=== PATIENT | male | born 1990 | race Caucasian/White ===

== ENCOUNTER 2023-05-22 16:11 | Outpatient (REF) | payer OTHER, SELFPAY ==
[2023-05-24 07:42] LABS: Syphilis Screen Nonreactive (Nonreactive)
[2023-05-24 13:19] LABS: IgA 185 mg/dL (47-310); IgG 860 mg/dL (600-1640); IgM 179 mg/dL (50-300)
[2023-05-27 10:00] LABS: Anti Nuclear Antibody Screen NEGATIVE (NEGATIVE)
== END 2023-05-22 16:12 | disposition home or self-care (01) ==
LOC: HO.LAB 16:11
PROVIDERS: PCP Nurse Practitioner Family; Visit Provider Psychiatry & Neurology Neurology
DX: G43.109 Migraine with aura, not intractable, without status migrainosus (principal)
CPT/HCPCS: 36415; 82784; 86038; 86334; 86780

== ENCOUNTER 2023-06-10 13:15 | Outpatient (REF) | payer OTHER, SELFPAY ==
[2023-06-11 13:14] LABS: Antibody to SS-A Antigen <1.0 NEG AI (<1.0 NEG); Antibody to SS-B Antigen <1.0 NEG AI (<1.0 NEG)
== END 2023-06-10 13:16 | disposition home or self-care (01) ==
LOC: HO.LAB 13:15
PROVIDERS: PCP Nurse Practitioner Family; Visit Provider Psychiatry & Neurology Neurology
DX: G43.109 Migraine with aura, not intractable, without status migrainosus (principal)
CPT/HCPCS: 36415; 86235